=== PATIENT | male | born 1950 | race Caucasian/White ===

== ENCOUNTER 2016-05-16 09:48 | Day surgery (SDC) | payer MEDICARE, OTHER ==
[2016-05-12 09:44] VITALS: BMI 32.5
--- NOTE | 2016-05-15 17:42 | HP ---
DATE OF ADMISSION: 05/16/2016 Herman Nunn is a 65-year-old gentleman who was seen in the office after having a traumatic injury sustained on 04/10/2016. He reported pain and inability to extend the left knee. Examination confirmed clinical distal quadriceps tendon tear. I recommended repair of the distal quadriceps tendon tear. I reviewed the procedure, risks, complications, benefits and recovery. The patient understood and was agreeable. Consent regarding the procedure was obtained. His past medical history is hypercholesterolemia, hypertension, benign prostatic hypertrophy. His past surgical history is noncontributory. His daily medications are Flomax, meloxicam, metoprolol, simvastatin. ALLERGIES: None reported. SOCIAL HISTORY: Patient denies tobacco use. PHYSICAL EVALUATION OF THE LEFT KNEE: There is a palpable defect along the distal quadriceps tendon superior pole area. He is able to extend the knee to about 23 degrees with significant difficulty. Flexion is 90 degrees of difficulty. There is tenderness along the medial and lateral joint lines. His collateral ligaments are stable. Hip rotation is without pain. His distal neurovascular exam is intact. Left knee radiographs reveal some mild osteoarthritis. There did appear to be patella baja. No obvious fracture. IMPRESSION: Left knee distal quadriceps tendon tear. PLAN: Repair left knee distal quadriceps tendon tear.
[~2016-05-16 09:48] MED LIST: DEXAMETHASONE SOD PHOSPHATE 10 MG/ML 1 ML VIAL IV ONE; LIDOCAINE 1% 20 ML VIAL (10MG/ML) FOR IV START INTRADERMA PRN; SCOPOLAMINE 1.5MG/72HR PATCH TRANSDERM ONE; ceFAZolin 2 GM in SODIUM CHLORIDE 0.9% 100 ML IVPB ONE
[2016-05-16] MEDS: LACTATED RINGERS 1,000 ML IV SCH ×3 (10:48→17:10)
[2016-05-16] MEDS ORDERED: ONDANSETRON 4 MG/2 ML VIAL IVP ONE (10:52)
[2016-05-16] MEDS ORDERED: PROPOFOL 10 MG/ML 20 ML VIAL IV ONE ×2 (14:14)
[2016-05-16] MEDS ORDERED: SUCCINYLCHOLINE CHLORIDE 100 MG/5 ML SYR IV ONE ×2 (14:14)
[2016-05-16] MEDS ORDERED: fentaNYL (PF) 50 MCG/ML 2 ML AMP ONE ×2 (14:14)
[2016-05-16] MEDS ORDERED: NEOSTIGMINE 1 MG/ML 10 ML VIAL ONE ×2 (14:14)
[2016-05-16] MEDS ORDERED: ROCURONIUM BROMIDE 10 MG/ML 10 ML VIAL IV ONE ×2 (14:14)
[2016-05-16] MEDS ORDERED: ePHEDrine 50 MG/ML 1 ML AMP ONE ×2 (14:14)
[2016-05-16] MEDS ORDERED: PHENYLEPHRINE-0.9% NACL SYG 1 MG/10 ML SYRINGE ONE ×2 (14:14)
[2016-05-16] MEDS ORDERED: GLYCOPYRROLATE 0.2 MG/ML 2 ML VIAL ONE ×2 (14:14)
[2016-05-16] MEDS ORDERED: MIDAZOLAM 2 MG/2 ML VIAL ONE ×2 (14:14)
[2016-05-16] MEDS ORDERED: KETOROLAC 30 MG/ML 1 ML VIAL ONE ×2 (14:14)
[2016-05-16] MEDS ORDERED: LACTATED RINGERS 1,000 ML IV ONE (14:47)
[2016-05-16] MEDS ORDERED: BUPIVACAINE (PF) 0.5% 30 ML VIAL SQ ONE (15:17)
--- NOTE | 2016-05-16 15:46 | P.OP ---
Date of Procedure: 05/16/16 Preoperative Diagnosis: Left knee distal quadriceps tendon rupture Postoperative Diagnosis: Left knee distal quadriceps tendon rupture Procedure(s) Performed: Left knee distal quadriceps tendon repair Implants: 3-3.0 Arthrex push lock anchors Anesthesia: SANAZ local Surgeon: Josue Melgar Plow And Boring Machine Tender #1: Donnell Rodriguez Estimated Blood Loss (ml): 50 Pathology: none sent Condition: stable Disposition: PACU Indications for Procedure: 65-year-old patient seen with probable left distal quadriceps tendon rupture. I recommended repair this quadriceps tendon rupture. I did review the procedure , risks, complications and recovery. Patient was agreeable and consent was obtained. Operative Findings: See description of procedure Description of Procedure: The patient was taken to the operative suite. The patient underwent a general anesthetic by the department of anesthesia. The patient received preoperative IV antibiotics. A well-padded tourniquet was placed left proximal thigh. The left lower extremity was prepped and draped in the normal sterile orthopedic fashion. The extremity was elevated and tourniquet insufflated to 350. An midline anterior incision was made sharply through skin. Dissection was taken down through the subcu soft tissues down to the extensor mechanism. We immediately noted a complete rupture of the distal quadriceps tendon off of the superior pole patella as well as the medial lateral retinacular areas. We evacuated a large hematoma. We then irrigated the joint copiously with pulse lavage mechanical irrigation. The patellar tendon was intact. The quadriceps was easily reapproximated to the superior pole patella despite this being a 1- month-old injury. I debrided the margins along both sides. I used a rongeur to abrade the superior pole the patella. I introduced 3-3.0 Arthrex push lock anchors into the superior pole of the patella. Each push lock anchor had good bite and purchase. Each push lock anchor had 4 suture limbs. I now passed each limb of suture through good bites of distal quadriceps tendon. We now approximated the distal quadriceps tendon to the superior pole patella and I sewed all 12 limbs of suture press and the tendon along that abraded superior pole patella footprint area. Residual suture limbs were clipped. We are good repair. I now repaired the medial and lateral retinaculum with #2 FiberWire. I checked the repair and was stable as well. We now slightly flex and knee and noted good stability. Wound was irrigated with pulse lavage mechanical irrigation. The subcutaneous soft tissues were approximated with 2-0 Vicryl suture. The subcutaneous skin was approximated with 30 strata fix. The skin was approximated with pernio and Dermabond. The subcuticular tissue was infiltrated local analgesic. The tourniquet was released with me capillary refill noted of the extremity. We applied a sterile dressings and web roll as well as Yousuf bandage. The extremity was placed into a knee immobilizer. The patient was awakened and transferred to a bed and recovery stable condition. Donnell RUEDA assisted with the procedure.
[2016-05-16] MEDS ORDERED: HYDROcodone/APAP 7.5-325MG 1 EACH TAB PO PRN (15:47)
[2016-05-16] MEDS ORDERED: ONDANSETRON 4 MG/2 ML VIAL IVP PRN (15:47)
[2016-05-16] MEDS ORDERED: NALOXONE 0.4 MG/ML 1 ML VIAL IV PRN (15:47)
[2016-05-16] MEDS ORDERED: HYDROmorphone 1 MG/ML 1 ML SYRINGE IVP PRN ×3 (15:47)
[2016-05-16] MEDS: HYDROmorphone 1 MG/ML 1 ML SYRINGE IVP PRN ×4 (16:11→16:27)
[2016-05-16] MEDS: MIDAZOLAM 2 MG/2 ML VIAL IVP ONE ×2 (16:37→16:53)
[2016-05-16] MEDS: traMADol 50 MG TAB PO SCH ×2 (20:32→23:29)
[2016-05-16] MEDS: HYDROcodone/APAP 7.5-325MG 1 EACH TAB PO PRN (20:33)
[2016-05-16] MEDS: hydrOXYzine PAMOATE 25 MG CAP PO PRN (20:34)
[2016-05-16] MEDS: ceFAZolin 2 GM in SODIUM CHLORIDE 0.9% 100 ML IVPB SCH (23:30)
[2016-05-17] MEDS: LACTATED RINGERS 1,000 ML IV SCH (03:26)
[2016-05-17] MEDS: hydrOXYzine PAMOATE 25 MG CAP PO PRN ×3 (06:20→19:52)
[2016-05-17] MEDS: HYDROcodone/APAP 7.5-325MG 1 EACH TAB PO PRN ×3 (06:21→19:52)
[2016-05-17 07:21] LABS: Basophils % (A) 0 %; CHCM 33.6; Eosinophils # (A) 0.1 k/uL (0-0.7); Eosinophils % (A) 1 %; HCT 43.1 % (39.0-53.0); HDW 2.55; HGB 14.2 gm/dL (13.0-17.5); Luc # (Auto) 0.36; Luc % (Auto) 3; Lymphocytes # (A) 1.5 k/uL (1.0-4.8); Lymphocytes % (A) 13 %; MCH 31.4 pg (25.0-35.0); MCHC 32.9 g/dL (31.0-37.0); MCV 95.5 fL (80.0-100.0); Mean Platelet Volume 7.9; Monocytes # (A) 0.6 k/uL (0-1.0); Monocytes % (A) 5 %; Neutrophils # (A) 9.2 k/uL (1.3-7.7); Neutrophils % (A) 78 %; RBC 4.51 m/uL (4.30-5.90); RDW 13.3 % (11.5-15.5); WBC 11.8 k/uL (3.8-10.6); WBC (Perox) 12.15
[2016-05-17] MEDS: traMADol 50 MG TAB PO SCH ×4 (07:51→21:19)
[2016-05-17] MEDS: ceFAZolin 2 GM in SODIUM CHLORIDE 0.9% 100 ML IVPB SCH (07:52)
[2016-05-17] MEDS: FAMOTIDINE 20 MG TAB PO SCH (07:53)
[2016-05-17] MEDS: MELOXICAM 7.5 MG TAB PO SCH (07:53)
[2016-05-17] MEDS: ENOXAPARIN 30 MG/0.3 ML SYRINGE SQ SCH ×2 (07:53→20:08)
--- NOTE | 2016-05-17 10:58 | P.PN ---
Subjective Principal diagnosis: Status post open repair left distal quad tendon Patient is seen today resting in his hospital chair, he appears to be in no acute distress. His pain is well-controlled at this time. He denies headaches , lightheadedness, chest pain, shortness of breath, fever chills, nausea vomiting. Objective - Vital Signs Vital signs: Vital Signs Temp 98.2 F 05/17/16 08:02 Pulse 89 05/17/16 08:02 Resp 16 05/17/16 08:02 BP 126/74 05/17/16 08:02 Pulse Ox 97 05/17/16 08:02 Intake & Output 05/16/16 05/17/16 05/17/16 18:59 06:59 18:59 Intake Total 3250 Output Total 50 600 Balance 3200 -600 Weight 108.862 kg Intake: IV 3250 Output: Urine 600 Estimated Blood Loss 50 Other: Voiding Method Urinal - Exam Left lower extremity: Knee immobilizer is in good position. Incision is clean, dry and intact. Minimal swelling and ecchymosis present around the incision. Plantar flexion, dorsiflexion, EHL, FHL are intact. Calf is soft, no tenderness with palpation. Sensory exam to light touch is intact throughout the extremity, cap refills less than 2 seconds. - Labs CBC & Chem 7: 05/17/16 07:07 Labs: Abnormal Lab Results - Last 24 Hours (Table) 05/17/16 Range/Units 07:07 WBC 11.8 H (3.8-10.6) k/uL Neutrophils # 9.2 H (1.3-7.7) k/uL Assessment and Plan Plan: Assessment: 1. Postop day #1 status post open repair left distal quad tendon rupture Plan: 1. Pain control, continue supportive oral medications 2. Daily dressing changes/ice and elevate 3. Continue use of knee immobilizer, keep the knee in full extension 4. Nonweightbearing 5. GI and DVT prophylaxis, continue Lovenox during inpatient stay, we'll likely discharged home on aspirin 325 mg twice a day 6. Restart home medications 7. Discharge planning: Likely be discharged home tomorrow Time with Patient: Less than 30
--- NOTE | 2016-05-17 11:01 | P.DS ---
Providers Date of admission: 05/16/2016 Expected date of discharge: 05/18/16 Attending physician: Josue Melgar Primary care physician: Jared Bradley Lds Hospital Course: Date of admission: 05/16/2016 Date of discharge: 05/18/2016 Admission diagnosis: Status post open repair left distal quad tendon rupture Discharge diagnosis: Same Attending physician: Dr. Melgar Surgical procedures: Open repair left distal quad tendon repair Brief history: Patient is a 65-year-old male who is seen and evaluated in the outpatient setting by Dr. Melgar. There is obvious suspicion for a left distal quad tendon rupture after he sustained a fall about a month ago. He was scheduled for surgery for repair of the left distal quad tendon rupture on 05/16. Hospital course: Details of patient's surgery can be found in operative report. Patient tolerated the procedure well and was subsequently transported to orthopedic floor. Patient's orthopeidc and medical care was provided daily. Patient had daily laboratory tests performed for evaluation of overall blood counts. Patient had daily physical therapy to include strengthening range of motion as well as education with walker ambulation. Patient was treated with Lovenox for their postoperative DVT prophylaxis during their inpatient stay. Patient was noted to have a relatively uneventful postoperative course. Patient reported satisfactory pain control with oral pain medications by postoperative day 0. Patient showed satisfactory progress with physical therapy. Patient moved steadily through the program and had no difficulty meeting the goals by postoperative day 2. Given patient's otherwise satisfactory course and having met physical therapy goals, plan is to discharge patient home on postoperative day 2. Discharge condition/disposition: Patient will be discharged home in stable condition. Discharge medications: Instructions are given on resumption of patient's normal daily medications per primary care recommendation, in addition patient will be prescribed Biggs 7.5 mg/325 mg, tramadol 50 mg, aspirin 325 mg, Colace 100 mg Discharge instructions: 1. Wound care and infection precautions, keep incision dry and covered while showering, no lotions, creams, moisturizers. No soaking, tubs, pools, hottubs. Do not scrub over the incision. 2. Nonweightbearing, utilize knee immobilizer 3. Ice and elevate when necessary. Do not exceed 20 minutes per hour with ice pack. 4. Utilize compression sleeve until seen at first follow up appointment. 5. Pain meds and anticoagulants per prescription. 6. Pain medication has potential to cause constipation. Increase oral fluid and fiber intake. Contact primary care provider if you have not had a bowel movement within 48 hours after discharge 7. No anti-inflammatory medication until discussed at first post operative visit, this including Motrin, Aleve, Mobic, Diclofenac. 8. Follow up in office at 2 weeks postop with Ron Rodriguez PA-C 9. Follow up with your primary care doctor 7-10 days after discharge. 10. Contact [facility] with any questions, . Procedures: Open repair left distal quad tendon rupture Patient Condition at Discharge: Good Plan - Discharge Summary New Discharge Prescriptions: Aspirin 325 mg PO BID #30 tab Docusate [Colace] 100 mg PO DAILY #30 capsule HYDROcodone/APAP 7.5-325MG [Biggs 7.5] 1 - 2 each PO Q6HR PRN #60 tab PRN Reason: Pain traMADol HCl [Ultram] 50 mg PO Q6H PRN #40 tab PRN Reason: Pain Discharge Medication List Acetaminophen Tab [Tylenol Tab] 650 mg PO Q6H PRN 05/12/16 [History] Meloxicam [Mobic] 7.5 mg PO DAILY 05/12/16 [History] Metoprolol Succinate [Toprol XL] 100 mg PO DAILY 05/12/16 [History] Multivit with Calcium,Iron,Min [Women's Multivitamin] 1 each PO DAILY 05/12/16 [ History] Omeprazole/Sodium Bicarbonate [Zegerid 20 mg Capsule] 1 each PO DAILY PRN [History] Simvastatin [Zocor] 40 mg PO HS 05/12/16 [History] Tamsulosin [Flomax] 0.4 mg PO DAILY 05/12/16 [History] Aspirin 325 mg PO BID #30 tab 05/18/16 [Rx] Docusate [Colace] 100 mg PO DAILY #30 capsule 05/18/16 [Rx] HYDROcodone/APAP 7.5-325MG [Biggs 7.5] 1 - 2 each PO Q6HR PRN #60 tab 05/18/16 [ Rx] traMADol HCl [Ultram] 50 mg PO Q6H PRN #40 tab 05/18/16 [Rx] Follow up Appointment(s)/Referral(s): [facility], [NON-STAFF] - 1 Week Donnell Rodriguez PAC [PHYSICIAN PERSONAL TRAINER] - 2 Weeks Activity/Diet/Wound Care/Special Instructions: Discharge instructions: 1. Nonweightbearing with left leg, utilize knee immobilizer 2. Ice and elevate the office 3. Okay to shower, incision dry and covered 4. Pain medication as needed 5. Aspirin 325 mg twice a day for 2 weeks for DVT prophylaxis 6. Follow-up at [facility] in 2 weeks wheel [facility] when you get home and they will deliver it. Discharge Disposition: HOME SELF-CARE
[2016-05-17] MEDS ORDERED: TAMSULOSIN 0.4 MG CAP.ER.24H PO SCH (18:30)
[2016-05-18] MEDS: hydrOXYzine PAMOATE 25 MG CAP PO PRN ×2 (01:10→06:10)
[2016-05-18] MEDS: HYDROcodone/APAP 7.5-325MG 1 EACH TAB PO PRN ×3 (01:11→11:48)
[2016-05-18 07:22] VITALS: RESP 16
[2016-05-18] MEDS: traMADol 50 MG TAB PO SCH ×2 (07:25→13:10)
[2016-05-18] MEDS: ENOXAPARIN 30 MG/0.3 ML SYRINGE SQ SCH (07:27)
[2016-05-18] MEDS: FAMOTIDINE 20 MG TAB PO SCH (07:27)
[2016-05-18] MEDS: MELOXICAM 7.5 MG TAB PO SCH (07:27)
[2016-05-18] MEDS ORDERED: METOPROLOL SUCCINATE (ER) 100 MG TAB.ER.24H PO SCH (09:00)
[2016-05-18] MEDS ORDERED: ATORVASTATIN 40 MG TAB PO SCH (09:00)
--- NOTE | 2016-05-18 10:08 | P.PN ---
Subjective Principal diagnosis: Status post open repair left distal quad tendon Patient is seen today resting in his hospital chair, he appears to be in no acute distress. His pain is well-controlled at this time. He denies headaches , lightheadedness, chest pain, shortness of breath, fever chills, nausea vomiting. Objective - Vital Signs Vital signs: Vital Signs Temp 98 F 05/18/16 07:00 Pulse 93 05/18/16 07:00 Resp 16 05/18/16 07:00 BP 155/80 05/18/16 07:00 Pulse Ox 94 L 05/18/16 07:00 Intake & Output 05/17/16 05/18/16 05/18/16 18:59 06:59 18:59 Intake Total 660 120 Output Total 1100 400 Balance -440 -280 Intake: Oral 660 120 Output: Urine 1100 400 Other: Voiding Method Toilet Urinal # Voids 2 1 - Exam Left lower extremity: Knee immobilizer is in good position. Incision is clean, dry and intact. Minimal swelling and ecchymosis present around the incision. Plantar flexion, dorsiflexion, EHL, FHL are intact. Calf is soft, no tenderness with palpation. Sensory exam to light touch is intact throughout the extremity, cap refills less than 2 seconds. - Labs CBC & Chem 7: 05/17/16 07:07 Assessment and Plan Plan: Assessment: 1. Postop day #2 status post open repair left distal quad tendon rupture Plan: 1. Pain control, continue supportive oral medications 2. Daily dressing changes/ice and elevate 3. Continue use of knee immobilizer, keep the knee in full extension 4. Nonweightbearing 5. GI and DVT prophylaxis, continue Lovenox during inpatient stay, we'll likely discharged home on aspirin 325 mg twice a day 6. Restart home medications 7. Discharge planning: Likely be discharged home today Time with Patient: Less than 30
--- NOTE | 2016-05-18 12:57 | P.CONS ---
History of Present Illness - Reason for Consult Consult date: 05/18/16 Medical management Requesting physician: Josue Melgar - Chief Complaint Left distal quad tendon rupture status post fall - History of Present Illness Patient is a 65-year-old male, patient of Dr. Jared Bradley in the outpatient setting, presenting to the hospital for elective open repair of his left distal quad tendon rupture after he sustained a fall about a month ago. Patient tolerated the procedure well. Patient is evaluated on the surgical unit where he is postop day #2. Patient is doing well. Denies chills, fevers, nausea, vomiting, shortness of breath, chest pain, abdominal pain, numbness or tingling. Patient is tolerating diet. Patient is urinating without difficulty. Patient denies constipation or diarrhea. Incisional pain controlled. No evidence of leukocytosis. Patient has been up ambulating with physical therapy. Patient is currently stable for discharge to home from an orthopedic standpoint. Past Medical History Past Medical History: GERD/Reflux, Hyperlipidemia, Hypertension, Musculoskeletal Disorder, Osteoarthritis (OA) Additional Past Medical History / Comment(s): fell & injured knee 04-10-16 History of Any Multi-Drug Resistant Organisms: None Reported Past Surgical History: Orthopedic Surgery Additional Past Surgical History / Comment(s): right knee surg. x2, exp. lap. Past Anesthesia/Blood Transfusion Reactions: No Reported Reaction Past Psychological History: No Psychological Hx Reported Smoking Status: Never smoker Past Alcohol Use History: Occasional Past Drug Use History: None Reported - Past Family History Mother Family Medical History: Pulmonary Embolus Medications and Allergies Home Medications Medication Instructions Recorded Confirmed Type Acetaminophen Tab [Tylenol Tab] 650 mg PO Q6H PRN 05/12/16 05/16/16 History Meloxicam [Mobic] 7.5 mg PO DAILY 05/12/16 05/12/16 History Metoprolol Succinate [Toprol XL] 100 mg PO DAILY 05/12/16 05/12/16 History Multivit with Calcium,Iron,Min 1 each PO DAILY 05/12/16 05/12/16 History [Women's Multivitamin] Omeprazole/Sodium Bicarbonate 1 each PO DAILY PRN 05/12/16 05/16/16 History [Zegerid 20 mg Capsule] Simvastatin [Zocor] 40 mg PO HS 05/12/16 05/16/16 History Tamsulosin [Flomax] 0.4 mg PO DAILY 05/12/16 05/12/16 History Allergies Allergy/AdvReac Type Severity Reaction Status Date / Time No Known Allergies Allergy Verified 05/12/16 09:34 Physical Exam Vitals: Vital Signs Temp Pulse Resp BP Pulse Ox 05/18/16 07:00 98 F 93 16 155/80 94 L 05/18/16 01:49 97.4 F L 87 20 141/81 93 L 05/17/16 19:52 16 05/17/16 19:47 96.9 F L 88 16 143/92 94 L 05/17/16 14:58 97.3 F L 81 16 134/85 96 Intake and Output 05/17/16 05/18/16 05/18/16 22:59 06:59 14:59 Intake Total 120 Output Total 500 400 Balance -500 -280 Intake: Oral 120 Output: Urine 500 400 Other: Voiding Method Toilet Urinal # Voids 1 1 GENERAL: Pt awake and alert, well-appearing, well-nourished, and in no acute distress. HEAD: Atraumatic, normocephalic. EYES: Pupils equal, round, and reactive to light, extraocular movements intact, sclera anicteric, conjunctiva are normal. ENT: Oropharynx clear without exudates. Moist mucous membranes. Tongue smooth, pink, no lesions, protrudes in midline. NECK:Normal range of motion, supple without lymphadenopathy or JVD. No carotid bruits. Thyroid midline, small and firm without palpable masses. LUNGS: Breath sounds clear to auscultation bilaterally. No wheezes, rales, or rhonchi. HEART: Heart S1, S2, no S3 or S4. Regular rate and rhythm. No murmurs, rubs or gallops. ABDOMEN: Soft, nontender, nondistended, normoactive bowel sounds. No guarding, no rebound. No masses or organomegaly appreciated. EXTREMITIES: Palpable peripheral pulses. No calf tenderness. Splint applied to left lower extremity. NEUROLOGICAL: Pt oriented x 3. Cranial nerves II through XII grossly intact. Strength and sensation grossly intact. PSYCH: Normal mood, normal affect. SKIN: Warm, dry, intact. Normal turgor. No rashes or lesions. Results CBC & Chem 7: 05/17/16 07:07 Assessment and Plan Plan: Impression: 1. Status post open repair left distal quad tendon rupture status post fall. 2. History of GERD. 3. History of hyperlipidemia. 4. Hypertension. 5. 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 Plan: Continue surgical management by orthopedic service. Home medications of been reviewed and resumed. Continue supportive treatment and pain management. Continue physical therapy. Continue GI and DVT prophylaxis. Continue incentive spirometry 10 times an hour while awake. From a medical standpoint, patient is stable for discharge when cleared by orthopedic service. Patient will follow-up with Dr. Bradley in the outpatient setting in approximately 1-2 weeks. The above impression and plan have been discussed and directed by Dr. Bradley. Dustin MENDOZA acting as scribe for Dr. Bradley.
[2016-05-18 13:51] VITALS: BP 108/74; PULSE 79; TEMP 97.4
== END 2016-05-18 16:58 | disposition home or self-care (01) ==
LOC: OR 09:48 → 3SUR 15:34 → OR 05-18 16:58
PROVIDERS: ATTEND Orthopaedic Surgery
DX: S76.112A Strain of left quadriceps muscle, fascia and tendon, initial encounter (principal); W19.XXXA Unspecified fall, initial encounter; K21.9 Gastro-esophageal reflux disease without esophagitis; E78.5 Hyperlipidemia, unspecified; I10 Essential (primary) hypertension; M19.90 Unspecified osteoarthritis, unspecified site; Z79.899 Other long term (current) drug therapy
CPT/HCPCS: 94760; 97530; 97161; 85025; 27664; C1713 ×2; J2250; J1100; J2710; J0690 ×2; J2405; J3010; J1885; J1650 ×2; J1170; J2370; J0330; J2704

== ENCOUNTER 2024-02-26 19:14 | Emergency (ER) | payer MEDICARE ==
--- NOTE | 2024-02-26 19:53 | ED ---
Dizziness HPI - General Source: patient Mode of arrival: wheelchair Limitations: no limitations <Sky Babcock - Last Filed: 02/26/24 19:52> <Aliya Houser - Last Filed: 02/27/24 13:32> - General Chief Complaint: Syncope Stated Complaint: Dizziness Time Seen by Provider: 02/26/24 19:52 - History of Present Illness Initial Comments: 73-year-old male presenting with chief complaint of dizziness. Patient had this dizziness spell when he was bending over to tie his shoes. He felt like he was about to pass out. He had no chest pain or difficulty breathing. States that his dizziness has calm down. He does admit to a headache at this time. Admits to nausea with no vomiting. (Sky Babcock) Patient is a 73-year-old gentleman past medical history of hypertension, hyperlipidemia presenting today for episode of dizziness and near syncope. Patient was at home today when he was standing and leaned down to tie his shoes. He felt a sharp headache at the right side of his head with associated dizziness and felt like he was going to "blackout". He did not lose consciousness. Dizziness has since resolved spontaneously and headache has improved without intervention. States over the last few days he has felt "unsteady" at times when he walks, he thinks possibly 2/2 swelling and weakness in his LLE that developed w/ onset of shingles about 1 week ago. Endorses intermittent cramping pain in the left thigh. Denies fevers, chills, chest pain, shortness of breath, history of prior CVA or CAD, is a non-smoker. He denies any abdominal pain, nausea, vomiting, dysuria, urinary frequency, numbness, changes in vision, slurred speech. Does state that he feels like the hearing in his right ear has been somewhat muffled "like he is holding a seashell up to it". Feels that his rash lesions from shingles are improving. (Aliya Houser) - Related Data Home Medications Medication Instructions Recorded Confirmed Acetaminophen Tab [Tylenol Tab] 650 mg PO Q6H PRN 05/12/16 05/16/16 Meloxicam [Mobic] 7.5 mg PO DAILY 05/12/16 05/12/16 Metoprolol Succinate [Toprol XL] 100 mg PO DAILY 05/12/16 05/12/16 Multivit with Calcium,Iron,Min 1 each PO DAILY 05/12/16 05/12/16 [Women's Multivitamin] Omeprazole/Sodium Bicarbonate 1 each PO DAILY PRN 05/12/16 05/16/16 [Zegerid 20 mg Capsule] Simvastatin [Zocor] 40 mg PO HS 05/12/16 05/16/16 Tamsulosin [Flomax] 0.4 mg PO DAILY 05/12/16 05/12/16 Previous Rx's Medication Instructions Recorded Aspirin 325 mg PO BID #30 tab 05/18/16 Docusate [Colace] 100 mg PO DAILY #30 capsule 05/18/16 HYDROcodone/APAP 7.5-325MG [[place] 1 - 2 each PO Q6HR PRN #60 tab 05/18/16 7.5] traMADol HCl [Ultram] 50 mg PO Q6H PRN #40 tab 05/18/16 Allergies Allergy/AdvReac Type Severity Reaction Status Date / Time No Known Allergies Allergy Verified 02/26/24 19:23 Review of Systems ROS Other: All systems not noted in ROS Statement are negative. <Sky Babcock - Last Filed: 02/26/24 19:52> ROS Other: All systems not noted in ROS Statement are negative. Constitutional: Denies: fever, chills Eyes: Denies: vision change ENT: Denies: ear pain Respiratory: Denies: cough, dyspnea Cardiovascular: Denies: chest pain Gastrointestinal: Denies: abdominal pain, vomiting Genitourinary: Denies: dysuria, frequency Skin: Reports: lesions Neurological: Reports: headache, weakness (feels LLE is slightly weakness than RLE ), vertigo. Denies: numbness, paresthesias <Aliya Houser - Last Filed: 02/27/24 13:32> ROS Statement: Those systems with pertinent positive or pertinent negative responses have been documented in the HPI. Past Medical History Past Medical History: GERD/Reflux, Hyperlipidemia, Hypertension, Musculoskeletal Disorder, Osteoarthritis (OA) Additional Past Medical History / Comment(s): fell & injured knee 04-10-16 History of Any Multi-Drug Resistant Organisms: None Reported Past Surgical History: Orthopedic Surgery Additional Past Surgical History / Comment(s): right knee surg. x2, exp. lap. Past Anesthesia/Blood Transfusion Reactions: No Reported Reaction Past Psychological History: No Psychological Hx Reported Smoking Status: Never smoker Past Alcohol Use History: Occasional Past Drug Use History: None Reported - Past Family History Mother Family Medical History: Pulmonary Embolus <Jesus Babcockmartha - Last Filed: 02/26/24 19:52> General Exam Limitations: no limitations <Sky Babcock - Last Filed: 02/26/24 19:52> <Aliya - Last Filed: 02/27/24 13:32> - General Exam Comments Initial Comments: Visual Physical Exam Vital signs reviewed General: Well-appearing, nontoxic, no acute distress. Head: Normocephalic, atraumatic Eyes: PERRLA, EOMI ENT: Airway patent Chest: Nonlabored breathing Skin: No visual rash, normal skin tone Neuro: Alert and oriented 3 Musculoskeletal: No gross abnormalities (BabcockSky) PE: CONSTITUTIONAL: No apparent distress, well appearing SKIN: Warm, dry, no jaundice, hives, well healing vesicular lesions at posterior left calf in dermatomal distribution without surrounding erythema or discharge EYES: Pupils are equally round, extraocular movements intact without nystagmus, clear conjunctiva, non-icteric sclera HENT: Normocephalic, atraumatic, moist mucus membranes, oropharynx clear without exudates, right TM with effusion, appears opacified, nonerythematous, no temporal artery TTP NECK: , Full range of motion, normal appearance PULMONARY: Clear to auscultation without wheezes, rhonchi, or rales, normal excursion, no accessory muscle use and no stridor CARDIOVASCULAR: Regular rate, rhythm, normal S1 and S2. No appreciated murmurs, rubs or gallops. Strong radial pulses with intact distal perfusion. Scant 1+ LE edema in the LLE up to ankle, no edema in RLE GASTROINTESTINAL: Soft, active bowel sounds throughout, non-tender, non- distended, no palpable masses, no rebound or guarding. No hepatosplenomegaly MUSCULOSKELETAL: Visualized extremities have no gross deformity or signs of injury, 1+ edema in distal LLE as noted above NEUROLOGIC:_a/o x 3, GCS 15, normal mentation and speech. Cranial nerves: II (visual tamayo without defects), III, IV and (extraocular movements are intact, pupils are equal with normal reaction to light), V (intact facial sensation and jaw opening), VII (no facial droop), IX and X (normal palate movement, midline uvula, normal voice), XI (symmetrical shoulder shrug and lateral head rotation against resistance), XII (midline tongue protrusion). Slight decreased strength in LLE compared to right (4/5 LLE, 5/5 strength RLE). No abnormal movements. Normal muscle tone. Sensation to light touch is intact bilaterally. No cerebellar signs ([id number], [id number], normal) PSYCHIATRIC:_normal mood and affect, thought process is clear and linear (Aliya Houser) Course Vital Signs 02/26/24 02/26/24 02/27/24 19:21 22:21 02:37 Temperature 98.4 F 98.0 F Pulse Rate 82 94 84 Respiratory 18 16 18 Rate Blood Pressure 105/83 118/77 128/70 O2 Sat by Pulse 98 98 98 Oximetry EKG Findings - EKG Comments: EKG Findings:: Sinus rhythm, rate 84 bpm, IA interval 189 ms QRS duration 97 ms QT/QTc 358/399 ms left axis deviation, no STEMI, no ST elevations or significant depressions, no arrythmia or brugada pattern, no prior for comparison <Aliya Houser - Last Filed: 02/27/24 13:32> Medical Decision Making <Sky Babcock - Last Filed: 02/26/24 19:52> - Lab Data Result diagrams: 02/26/24 20:29 02/26/24 20:29 <Aliya Houser - Last Filed: 02/27/24 13:32> - Medical Decision Making I performed the quick note portion of this visit, electronically signed Sky Babcock PA-C (Sky Babcock) Was pt. sent in by a medical professional or institution (, [facility], ROUTE VENDING MACHINE SERVICER, urgent care, hospital, or [facility]...) When possible be specific @ -No Did you speak to anyone other than the patient for history (EMS, parent, family, police, friend...)? What history was obtained from this source @ -Pt's family assisted in providing hx Did you review nursing and triage notes (agree or disagree)? Why? @ -I reviewed and agree with nursing and triage notes Were old charts reviewed (outside hosp., previous admission, EMS record, old EKG, old radiological studies, urgent care reports/EKG's, [facility] records)? Report findings @Medical records reviewed Differential Diagnosis (chest pain, altered mental status, abdominal pain women, abdominal pain men, vaginal bleeding, weakness, fever, dyspnea, syncope, headac he, dizziness, GI bleed, back pain, seizure, CVA, palpatations, mental health, musculoskeletal)? @Differential Dizziness: Benign paroxysmal positional Vertigo, Meniere's disease, otitis media, acoustic neuroma, vertebrobasilar insufficiency, cerebellar stroke, hypovolemic, arrhythmia, coronary artery syndrome, anemia, this is not meant to be an all- inclusive list EKG interpreted by me (3pts min.). @ -As above X-rays interpreted by me (1pt min.). @ -None done CT interpreted by me (1pt min.). @I see no evidence of hemorrhage, mass effect or ischemic changes on CT brain U/S interpreted by me (1pt. min.). @ -None done What testing was considered but not performed or refused? (CT, X-rays, U/S, labs)? Why? @ -None What meds were considered but not given or refused? Why? Consider Tylenol for patient's headache however he politely declined, considered Antivert for dizziness however patient currently without any dizziness and politely declined Did you discuss the management of the patient with other professionals (professionals i.e. , PA, ROUTE VENDING MACHINE SERVICER, lab, RT, psych nurse, social insurance analyst, manager learning, teacher, loan workout officer, rn field case manager)? Give summary @ -No Was smoking cessation discussed for >3mins.? @ -No Was critical care preformed (if so, how long)? @ -No Were there social determinants of health that impacted care today? How? (Homelessness, low income, unemployed, alcoholism, drug addiction, transportation, low edu. Level, literacy, decrease access to med. care, [facility], rehab)? @ -No Was there de-escalation of care discussed even if they declined (Discuss DNR or withdrawal of care, Hospice)? @ -No What co-morbidities impacted this encounter? (DM, HTN, Smoking, COPD, CAD, Cancer, CVA, ARF, Chemo, Hep., AIDS, mental health diagnosis, sleep apnea, morbid obesity)? HLD HTN Was patient admitted / discharged? Hospital course, mention meds given and route, prescriptions, significant lab abnormalities, going to OR and other pertinent info. @ - Patient is a pleasant 73-year-old gentleman presenting today for dizziness and near syncope, currently being treated for shingles of the left lower extremity. Patient initially seen and assessed by triage provider. Reviewed labs and imaging ordered by triage provider. Urine does appear to show positive leukocyte esterase however patient currently denies any dysuria, frequency, hematuria. States he has had intermittent left-sided flank pain however has no CVA tenderness on exam and is currently asymptomatic Patient does have slight w eakness in left lower extremity when compared to right with associated thigh cramping, symptoms ongoing for about as long as his shingles diagnosis. Patient's symptoms are most consistent with vertigo given dizziness with head position changes and no other focal deficits, symptoms resolved spontaneously. CT brain showed no acute process and w/ dizziness now resolved, no cerebellar signs on exam, do not feel CTA is indicated at this time. though suspec tLLE swelling 2/2 shingles, will obtain US LLE for DVT. Give IV fluids. Discussed with pt plan of care and likely anticipated discharge. He is comfortable with plan for comfortable with discharge home. Pt signed out to oncoming physician, Dr. Collins, pending US completion. Undiagnosed new problem with uncertain prognosis? @ -No Drug Therapy requiring intensive monitoring for toxicity (Heparin, Nitro, Insulin, Cardizem)? @ -No Were any procedures done? @ -No Diagnosis/symptom? @dizziness, headache, LLE swelling Acute, or Chronic, or Acute on Chronic? @ acute Uncomplicated (without systemic symptoms) or Complicated (systemic symptoms)? @ -complicated Side effects of treatment? @ -No Exacerbation, Progression, or Severe Exacerbation? @ -No Poses a threat to life or bodily function? How? (Chest pain, [place], [place], pneumonia, PE, COPD, DKA, ARF, appy, cholecystitis, CVA, Diverticulitis, Homicidal, Suicidal, threat to staff... and all critical care pts) @ -No (Aliya Houser) - Lab Data Lab Results 02/26/24 02/26/24 02/26/24 Range/Units 20:29 20:29 20:29 WBC 11.6 H (3.8-10.6) k/uL RBC 5.11 (4.30-5.90) m/uL Hgb 16.3 (13.0-17.5) gm/dL Hct 47.6 (39.0-53.0) % MCV 93.1 (80.0-100.0) fL MCH 31.9 (25.0-35.0) pg MCHC 34.3 (31.0-37.0) g/dL RDW 12.8 (11.5-15.5) % Plt Count 280 (150-450) k/uL MPV 7.2 Neutrophils % 63 % Lymphocytes % 25 % Monocytes % 6 % Eosinophils % 4 % Basophils % 1 % Neutrophils # 7.4 (1.3-7.7) k/uL Lymphocytes # 2.9 (1.0-4.8) k/uL Monocytes # 0.7 (0-1.0) k/uL Eosinophils # 0.4 (0-0.7) k/uL Basophils # 0.1 (0-0.2) k/uL PT 10.3 (10.0-12.5) sec INR 0.9 (<1.2) Sodium 130 L (137-145) mmol/L Potassium 5.0 (3.5-5.1) mmol/L Chloride 93 L (98-107) mmol/L Carbon Dioxide 26 (22-30) mmol/L Anion Gap 11 mmol/L BUN 20 (9-20) mg/dL Creatinine 0.83 (0.66-1.25) mg/dL Est GFR (CKD-EPI)AfAm >90 (>60 ml/min/1.73 sqM) Est GFR (CKD-EPI)NonAf 87 (>60 ml/min/1.73 sqM) Glucose 192 H (74-99) mg/dL Lactic Ac Sepsis Rflx Plasma Lactic Acid Hardeep (0.7-2.0) mmol/L Calcium 10.8 H (8.4-10.2) mg/dL Total Bilirubin 0.7 (0.2-1.3) mg/dL AST 34 (17-59) U/L ALT 47 (4-49) U/L Alkaline Phosphatase 105 (38-126) U/L Troponin I (0.000-0.034) ng/mL Total Protein 7.1 (6.3-8.2) g/dL Albumin 4.5 (3.5-5.0) g/dL Urine Color Urine Appearance (Clear) Urine pH (5.0-8.0) Ur Specific [place] (1.001-1.035) Urine Protein (Negative) Urine Glucose (UA) (Negative) Urine Ketones (Negative) Urine Blood (Negative) Urine Nitrite (Negative) Urine Bilirubin (Negative) Urine Urobilinogen (<2.0) mg/dL Ur Leukocyte Esterase (Negative) Urine RBC (0-5) /hpf Urine WBC (0-5) /hpf Urine WBC Clumps (None) /hpf Ur Squamous Epith Cells (0-4) /hpf Urine Bacteria (None) /hpf Hyaline Casts (0-2) /lpf Urine Mucus (None) /hpf 02/26/24 02/26/24 02/26/24 Range/Units 20:29 20:29 21:00 WBC (3.8-10.6) k/uL RBC (4.30-5.90) m/uL Hgb (13.0-17.5) gm/dL Hct (39.0-53.0) % MCV (80.0-100.0) fL MCH (25.0-35.0) pg MCHC (31.0-37.0) g/dL RDW (11.5-15.5) % Plt Count (150-450) k/uL MPV Neutrophils % % Lymphocytes % % Monocytes % % Eosinophils % % Basophils % % Neutrophils # (1.3-7.7) k/uL Lymphocytes # (1.0-4.8) k/uL Monocytes # (0-1.0) k/uL Eosinophils # (0-0.7) k/uL Basophils # (0-0.2) k/uL PT (10.0-12.5) sec INR (<1.2) Sodium (137-145) mmol/L Potassium (3.5-5.1) mmol/L Chloride (98-107) mmol/L Carbon Dioxide (22-30) mmol/L Anion Gap mmol/L BUN (9-20) mg/dL Creatinine (0.66-1.25) mg/dL Est GFR (CKD-EPI)AfAm (>60 ml/min/1.73 sqM) Est GFR (CKD-EPI)NonAf (>60 ml/min/1.73 sqM) Glucose (74-99) mg/dL Lactic Ac Sepsis Rflx Y Plasma Lactic Acid Hardeep 2.9 H* (0.7-2.0) mmol/L Calcium (8.4-10.2) mg/dL Total Bilirubin (0.2-1.3) mg/dL AST (17-59) U/L ALT (4-49) U/L Alkaline Phosphatase (38-126) U/L Troponin I <0.012 (0.000-0.034) ng/mL Total Protein (6.3-8.2) g/dL Albumin (3.5-5.0) g/dL Urine Color Urine Appearance (Clear) Urine pH (5.0-8.0) Ur Specific [place] (1.001-1.035) Urine Protein (Negative) Urine Glucose (UA) (Negative) Urine Ketones (Negative) Urine Blood (Negative) Urine Nitrite (Negative) Urine Bilirubin (Negative) Urine Urobilinogen (<2.0) mg/dL Ur Leukocyte Esterase (Negative) Urine RBC (0-5) /hpf Urine WBC (0-5) /hpf Urine WBC Clumps (None) /hpf Ur Squamous Epith Cells (0-4) /hpf Urine Bacteria (None) /hpf Hyaline Casts (0-2) /lpf Urine Mucus (None) /hpf 02/25/ Range/Units 22:17 WBC (3.8-10.6) k/uL RBC (4.30-5.90) m/uL Hgb (13.0-17.5) gm/dL Hct (39.0-53.0) % MCV (80.0-100.0) fL MCH (25.0-35.0) pg MCHC (31.0-37.0) g/dL RDW (11.5-15.5) % Plt Count (150-450) k/uL MPV Neutrophils % % Lymphocytes % % Monocytes % % Eosinophils % % Basophils % % Neutrophils # (1.3-7.7) k/uL Lymphocytes # (1.0-4.8) k/uL Monocytes # (0-1.0) k/uL Eosinophils # (0-0.7) k/uL Basophils # (0-0.2) k/uL PT (10.0-12.5) sec INR (<1.2) Sodium (137-145) mmol/L Potassium (3.5-5.1) mmol/L Chloride (98-107) mmol/L Carbon Dioxide (22-30) mmol/L Anion Gap mmol/L BUN (9-20) mg/dL Creatinine (0.66-1.25) mg/dL Est GFR (CKD-EPI)AfAm (>60 ml/min/1.73 sqM) Est GFR (CKD-EPI)NonAf (>60 ml/min/1.73 sqM) Glucose (74-99) mg/dL Lactic Ac Sepsis Rflx Plasma Lactic Acid Hardeep (0.7-2.0) mmol/L Calcium (8.4-10.2) mg/dL Total Bilirubin (0.2-1.3) mg/dL AST (17-59) U/L ALT (4-49) U/L Alkaline Phosphatase (38-126) U/L Troponin I (0.000-0.034) ng/mL Total Protein (6.3-8.2) g/dL Albumin (3.5-5.0) g/dL Urine Color Colorless Urine Appearance Clear (Clear) Urine pH 6.0 (5.0-8.0) Ur Specific [place] 1.007 (1.001-1.035) Urine Protein Negative (Negative) Urine Glucose (UA) Negative (Negative) Urine Ketones Negative (Negative) Urine Blood Negative (Negative) Urine Nitrite Negative (Negative) Urine Bilirubin Negative (Negative) Urine Urobilinogen <2.0 (<2.0) mg/dL Ur Leukocyte Esterase Moderate H (Negative) Urine RBC 3 (0-5) /hpf Urine WBC 28 H (0-5) /hpf Urine WBC Clumps Rare H (None) /hpf Ur Squamous Epith Cells <1 (0-4) /hpf Urine Bacteria Rare H (None) /hpf Hyaline Casts 1 (0-2) /lpf Urine Mucus Rare H (None) /hpf Disposition <Sky Babcock - Last Filed: 02/26/24 19:52> Is patient prescribed a controlled substance at d/c from ED?: No <Aliya Houser - Last Filed: 02/27/24 13:32> Clinical Impression: Near syncope, Left leg swelling, Dizziness Disposition: HOME SELF-CARE Condition: Good Referrals: Jared Bradley DO [Primary Care Provider] - 1-2 days Onofre Rodríguez MD [STAFF PHYSICIAN] - 1-2 days
[2024-02-26 20:40] LABS: Basophils # (A) 0.1 k/uL (0-0.2); Basophils % (A) 1 %; Eosinophils # (A) 0.4 k/uL (0-0.7); Eosinophils % (A) 4 %; HCT 47.6 % (39.0-53.0); HGB 16.3 gm/dL (13.0-17.5); Lymphocytes # (A) 2.9 k/uL (1.0-4.8); Lymphocytes % (A) 25 %; MCH 31.9 pg (25.0-35.0); MCHC 34.3 g/dL (31.0-37.0); MCV 93.1 fL (80.0-100.0); Mean Platelet Volume 7.2; Monocytes # (A) 0.7 k/uL (0-1.0); Monocytes % (A) 6 %; Neutrophils # (A) 7.4 k/uL (1.3-7.7); Neutrophils % (A) 63 %; Platelet Count 280 k/uL (150-450); RBC 5.11 m/uL (4.30-5.90); RDW 12.8 % (11.5-15.5); WBC 11.6 k/uL (3.8-10.6)
[2024-02-26 20:46] LABS: INR 0.9 (<1.2); Prothrombin Time 10.3 sec (10.0-12.5)
[2024-02-26 20:57] LABS: ALT 47 U/L (4-49); African American GFR (CKD) >90 (>60 ml/min/1.73 sqM); Albumin 4.5 g/dL (3.5-5.0); Anion Gap 11 mmol/L; Blood Urea Nitrogen 20 mg/dL (9-20); Calcium 10.8 mg/dL (8.4-10.2); Carbon Dioxide 26 mmol/L (22-30); Chloride 93 mmol/L (98-107); Glucose 192 mg/dL (74-99); Non-African American GFR(CKD) 87 (>60 ml/min/1.73 sqM); Sodium 130 mmol/L (137-145); Total Bilirubin 0.7 mg/dL (0.2-1.3); Total Protein 7.1 g/dL (6.3-8.2)
[2024-02-26 20:58] LABS: AST 34 U/L (17-59); Alkaline Phosphatase 105 U/L (38-126)
--- NOTE | 2024-02-26 21:59 | CT ---
EXAMINATION TYPE: CT brain wo con DATE OF EXAM: 02/26/2024 9:15 PM COMPARISON: None. CLINICAL INDICATION: Male, 73 years old with history of Dizziness, headache, falls, Almost passed out and fell over while putting his shoes on. Son reports frequent falls recently. No injury from the fa ll. TECHNIQUE: CT of the brain is performed utilizing 3 mm thick sections through the posterior fossa and 3 mm thick sections through the remaining calvarium. Study is performed within 24 hours of arrival to the hospital. Contrast used: mL of , (none if empty) CT DLP: 1243.4 mGycm, Automated exposure control for dose reduction was used. FINDINGS: No abnormal hyperdensity is present to suggest an acute intracranial hemorrhage. No mass lesion is evident. No acute infarcts are evident. Periventricular white matter hypodensity is present, likely on the bas is of chronic white matter ischemic changes. Ventricles and sulci are appropriate for the patient age. Paranasal sinuses and mastoid air cells within the [id number] are clear. IMPRESSION: 1. No acute intracranial process. Follow up MRI can be performed as clinically indicated. 2. Chronic appearing periventricular white matter ischemic changes. [facility], , 02/26/2024 9:56 PM
[2024-02-26 22:51] LABS: Appearance,Urine Clear (Clear); Bacteria,Urine Rare /hpf; Bilirubin,Urine Negative (Negative); Blood,Urine Negative (Negative); Color,Urine Colorless; Glucose,Urine (UA) Negative (Negative); Hyaline Casts,Urine 1 /lpf (0-2); Ketones,Urine Negative (Negative); Leukocyte Esterase,Urine Moderate (Negative); Mucus,Urine Rare /hpf; Nitrite,Urine Negative (Negative); Protein,Urine Negative (Negative); RBC,Urine 3 /hpf (0-5); Specific Gravity,Urine 1.007 (1.001-1.035); Squamous Epithelial Cell,Urine <1 /hpf (0-4); Urobilinogen,Urine <2.0 mg/dL (<2.0); WBC,Urine 28 /hpf (0-5)
[2024-02-27] MEDS: SODIUM CHLORIDE 0.9% 1,000 ML IV ONE (00:48)
[2024-02-27 02:42] VITALS: BP 128/70; PULSE 84; RESP 18; TEMP 98
--- NOTE | 2024-02-27 02:49 | US ---
Exam: US VENOUS LEFT LOWER EXTREMITY Comparison: COMPARISON: NONE CLINICAL INDICATION: Male, 73 years old with history of LE swelling; Left leg swelling 1 month. No hx DVT. Not on thinners, Pain TECHNIQUE: The lower extremity deep venous system is examined utilizing real time linear array sonography with graded compression, color doppler sonography, and spectral doppler. 23 images SIDE PERFORMED: Left FINDINGS: VESSELS IMAGED: Common Femoral Vein Deep Femoral Vein Greater Saphenous Vein * Femoral Vein Popliteal Vein Small Saphenous Vein * Proximal Calf Veins Negative for DVT, Color Doppler imaging shows patency of the vessels. Spectral waveforms are within normal limits. IMPRESSION: No ultrasound evidence for deep venous thrombosis.
== END 2024-02-27 02:42 | disposition home or self-care (01) ==
LOC: EC 19:14
DX: R22.42 Localized swelling, mass and lump, left lower limb (principal); R55 Syncope and collapse; R42 Dizziness and giddiness; I10 Essential (primary) hypertension; E78.5 Hyperlipidemia, unspecified
CPT/HCPCS: 36415; 70450; 80053; 81001; 83605; 84484; 85025; 85610; 87086; 93005; 96360; 99285